=== PATIENT | female | born 1965 | race Caucasian/White ===

== ENCOUNTER 2021-04-03 10:32 | Outpatient (CLI) | payer BC ==
[2021-04-03 15:20] LABS: THYROID STIMULATING HORMONE 0.96 uIU/mL (0.34-5.60)
[2021-04-03 15:21] LABS: FREE T3 3.33 pg/mL (2.5-3.9)
[2021-04-03 15:22] LABS: FREE T4 (FREE THYROXINE) 1.61 ng/dL (0.58-1.64)
== END 2021-04-03 10:33 | disposition home or self-care (01) ==
LOC: LAB.S 10:32
PROVIDERS: ATTEND Physician Assistant
DX: R53.81 Other malaise (principal); R79.82 Elevated C-reactive protein (CRP); R89.0 Abnormal level of enzymes in specimens from other organs, systems and tissues; E89.0 Postprocedural hypothyroidism
CPT/HCPCS: 36415; 84439; 84443; 84481; 86141

== ENCOUNTER 2022-02-19 08:00 | Outpatient (CLI) | payer BC ==
--- NOTE | 2022-02-19 11:47 | XRAY Report ---
PROCEDURE: Ankle 3 View RT INDICATIONS: RIGHT ANKLE FRACTURE TECHNIQUE: 3 views of the ankle were acquired. COMPARISON: None FINDINGS: Bones: Minimally displaced oblique fracture of the distal fibular metaphysis. Mortise alignment is ma intained. No osteochondral lesion in the talar dome. A small plantar calcaneal enthesophyte is presen t. No suspicious bony lesions. Soft tissues: Mild soft tissue edema is seen surrounding the ankle. IMPRESSION: Minimally displaced fracture of the distal fibular metaphysis. Reviewed by: Jose G Montalvo MD on 02/19/2022 11:46 AM PDT Approved by: Jose G Montalvo MD on 02/19/2022 11:46 AM PDT Station ID: [id number]
== END 2022-02-19 23:59 | disposition home or self-care (01) ==
LOC: DI.S 08:00
DX: S82.431A Displaced oblique fracture of shaft of right fibula, initial encounter for closed fracture (principal)

== ENCOUNTER 2022-03-03 08:00 | Outpatient (CLI) | payer BC ==
--- NOTE | 2022-03-03 15:46 | XRAY Report ---
PROCEDURE: Ankle 3 View RT INDICATIONS: Right ankle fracture TECHNIQUE: 3 views of the ankle were acquired. COMPARISON: 02/19/2022 FINDINGS: Unchanged alignment of distal fibular metaphyseal fracture again extending into the tibiofi bular syndesmosis and the ankle mortise. Mild widening of the lateral ankle mortise is unchanged. Sma ll ankle joint effusion is similar. IMPRESSION: Unchanged distal fibular metaphyseal fracture extending into the ankle mortise with unch anged mild widening of the lateral mortise. Reviewed by: Vj Ahn MD on 03/03/2022 3:45 PM PDT Approved by: Vj Ahn MD on 03/03/2022 3:45 PM PDT Station ID: [id number]
== END 2022-03-03 23:59 | disposition home or self-care (01) ==
LOC: DI.S 08:00
DX: S82.831D Other fracture of upper and lower end of right fibula, subsequent encounter for closed fracture with routine healing (principal)

== ENCOUNTER 2022-03-31 07:49 | Outpatient (CLI) | payer BC ==
[2022-03-31 15:18] LABS: ALBUMIN 4.1 g/dL (3.2-5.5); ALBUMIN/GLOBULIN RATIO 1.5 (1.0-2.2); ALKALINE PHOSPHATASE 79 IU/L (42-121); ALT ALANINE AMINOTRANSFERASE 35 IU/L (10-60); AST ASPARTATE AMINOTRANSFERASE 25 IU/L (10-42); BILIRUBIN,TOTAL 0.5 mg/dL (0.2-1.0); BUN - BLOOD UREA NITROGEN 19 mg/dL (6-20); CALCIUM 9.5 mg/dL (8.5-10.3); CARBON DIOXIDE - CO2 28 mmol/L (21-32); CHLORIDE 103 mmol/L (101-111); CHOL/HDL RATIO 3.3 (<4.4); CHOLESTEROL 209 mg/dL; CREATININE 0.8 mg/dL (0.4-1.0); GAMMA GLUTAMYL TRANSPEPTIDASE 33 IU/L (8-38); GFR - MDRD 75 (>89); GLUCOSE 97 mg/dL (70-100); HDL CHOLESTEROL 63 mg/dL; LDL CHOLESTEROL,CALCULATED 110 mg/dL; LDL/HDL RATIO 1.7 (<4.4); POTASSIUM 4.4 mmol/L (3.5-5.0); SODIUM 137 mmol/L (135-145); TOTAL PROTEIN 6.9 g/dL (6.7-8.2); TRIGLYCERIDES 180 mg/dL; VLDL CHOLESTEROL 36 mg/dL
[2022-03-31 15:29] LABS: THYROID STIMULATING HORMONE 1.11 uIU/mL (0.34-5.60)
[2022-03-31 15:31] LABS: FREE T3 3.39 pg/mL (2.5-3.9)
[2022-03-31 15:33] LABS: FREE T4 (FREE THYROXINE) 1.22 ng/dL (0.58-1.64)
== END 2022-03-31 07:50 | disposition home or self-care (01) ==
LOC: LAB.S 07:49
PROVIDERS: ATTEND Physician Assistant
DX: R53.81 Other malaise (principal)
CPT/HCPCS: 36415; 80053; 80061; 82977; 83721; 84439; 84443; 84481

== ENCOUNTER 2022-12-23 13:07 | Outpatient (CLI) | payer BC ==
--- NOTE | 2022-12-31 10:48 | Mammography Report ---
BILATERAL DIGITAL SCREENING MAMMOGRAM 3D/2D: 12/23/2022 CLINICAL: Routine screening. No prior exams were available for comparison. There are scattered areas of fibroglandular density in both breasts (category b / 25%-50% glandular t issue). No significant masses, calcifications, or other findings are seen in either breast. IMPRESSION: NEGATIVE There is no mammographic evidence of malignancy. A 1 year screening mammogram is recommended. Based on the Tyrer Cuzick model (a risk assessment model) the patients lifetime risk is 9.3% and her 10 year risk is 2.9%. According to the ACR, ACS, and NCCN guidelines, an annual breast MRI exam jayce g with mammogram is recommended if the patients lifetime risk is 20% or greater. This exam was interpreted at Station ID: [id number]. NOTE: For mammograms, a report in lay terms will be sent to the patient. Approximately 15% of breast malignancies will not be visualized mammographically. In the management of a palpable breast mass, a negative mammogram must not discourage biopsy of a clinically suspicious lesion. Electronically Signed By: Oliver Joshua M.D. [facility] [place]12/30/2022 16:21:20 letter sent: No_Letter ACR BI-RADS Category 1: Negative 3341F PARENCHYMAL PATTERN: (A) - The breast(s) demonstrate(s) scattered fibroglandular densities. BI-RADS CATEGORY: (1) - 1 Mammogram 20231224 1 year screening LATERALITY: (B)
== END 2022-12-23 13:08 | disposition home or self-care (01) ==
LOC: DI.S 13:07
DX: Z12.31 Encounter for screening mammogram for malignant neoplasm of breast (principal)

== ENCOUNTER 2023-07-27 08:00 | Outpatient (CLI) | payer BC ==
[2023-07-27 14:42] LABS: BASOPHILS # (AUTO) 0.1 10^3/uL (0.0-0.1); BASOPHILS % (AUTO) 1.3 %; EOSINOPHILS # (AUTO) 0.1 10^3/uL (0.0-0.7); EOSINOPHILS % (AUTO) 1.9 %; HCT - HEMATOCRIT 42.7 % (37.0-47.0); HGB - HEMOGLOBIN 14.4 g/dL (12.0-16.0); LYMPHOCYTES # (AUTO) 2.6 10^3/uL (1.5-3.5); LYMPHOCYTES % (AUTO) 49.4 %; MEAN CORPUSCULAR HEMOGLOBIN 31.9 pg (27.0-31.0); MEAN CORPUSCULAR HGB CONC 33.7 g/dL (32.0-36.0); MEAN CORPUSCULAR VOLUME 94.5 fL (81.0-99.0); MEAN PLATELET VOLUME 9.6 fL (7.9-10.8); MONOCYTES # (AUTO) 0.3 10^3/uL (0.0-1.0); NEUTROPHILS # (AUTO) 2.1 10^3/uL (1.5-6.6); PLT - PLATELET COUNT 278 10^3/uL (130-450); RED BLOOD COUNT 4.52 10^6/uL (4.20-5.40); RED CELL DISTRIBUTION WIDTH 12.2 % (12.0-15.0); WHITE BLOOD COUNT 5.2 x10^3/uL (4.8-10.8)
[2023-07-27 16:15] LABS: ESTIMATED AVERAGE GLUCOSE 88 mg/dL (70-100); HEMOGLOBIN A1c% 4.7 % (4.27-6.07)
[2023-07-27 16:16] LABS: % IRON SATURATION 21 % (20-50); ALBUMIN 4.5 g/dL (3.2-5.5); ALKALINE PHOSPHATASE 73 IU/L (42-121); ALT ALANINE AMINOTRANSFERASE 59 IU/L (10-60); AST ASPARTATE AMINOTRANSFERASE 37 IU/L (10-42); BILIRUBIN,TOTAL 0.4 mg/dL (0.2-1.0); BUN - BLOOD UREA NITROGEN 17 mg/dL (6-20); CALCIUM 9.4 mg/dL (8.5-10.3); CARBON DIOXIDE - CO2 27 mmol/L (21-32); CHLORIDE 102 mmol/L (101-111); CHOLESTEROL 204 mg/dL; CREATININE 0.8 mg/dL (0.6-1.3); CRP HIGH SENSITIVITY 2.77 mg/L; GFR - MDRD 74 (>89); GLUCOSE 90 mg/dL (74-104); HDL CHOLESTEROL 69 mg/dL; IRON 74 ug/dL (50-212); LDL CHOLESTEROL,CALCULATED 116 mg/dL; LDL/HDL RATIO 1.7 (<4.4); POTASSIUM 4.2 mmol/L (3.5-4.5); SODIUM 136 mmol/L (135-145); TOTAL IRON BINDING CAPACITY 356 ug/dL (250-450); TOTAL PROTEIN 6.8 g/dL (6.4-8.9); TRANSFERRIN 254 mg/dL (203-362); TRIGLYCERIDES 94 mg/dL (48-352); VLDL CHOLESTEROL 19 mg/dL
[2023-07-27 16:26] LABS: FERRITIN 65.2 ng/mL (11.0-306.8)
[2023-07-28 07:10] LABS: ESTRADIOL 34.4 pg/mL (.); PROGESTERONE 1.5 ng/mL (.); VITAMIN D 25-HYDROXY 81.9 ng/mL (30.0-100.0)
[2023-07-29 14:08] LABS: FREE TESTOSTERONE(DIRECT) 5.7 pg/mL (0.0-4.2)
== END 2023-07-27 08:01 | disposition home or self-care (01) ==
LOC: LAB.S 08:00
PROVIDERS: ATTEND Physician Assistant
DX: R53.81 Other malaise (principal); N95.1 Menopausal and female climacteric states
CPT/HCPCS: 36415; 80053; 80061; 81599; 82306; 82533; 82627; 82670; 82728; 83036; 83540; 83721; 84140; 84144; 84402; 84403; 84439; 84443; 84466; 84481; 85025; 86141

== ENCOUNTER 2024-04-10 09:08 | Outpatient (CLI) | payer BC ==
--- NOTE | 2024-04-10 16:56 | Ultrasound Report ---
PROCEDURE: Abdomen Limited INDICATIONS: RUQ PAIN TECHNIQUE: Real-time focused scanning was performed of the abdomen, with image documentation. COMPARISONS: None. FINDINGS: Liver: Liver is normal in size and homogeneous in echotexture. Gallbladder: Multiple mobile stones seen in the gallbladder neck. No , sludge, wall thickening or per icholecystic edema. Biliary ducts: Intrahepatic bile ducts are non-dilated. Extrahepatic bile duct caliber measures 4.3 mm. Normal is 6-7 mm or less in diameter, or 10 mm or less post-cholecystectomy. Pancreas: Visualized portions of the pancreas are sonographically normal. Right kidney: Normal in size and echotexture. Right kidney measures 9.7 cm long. No hydronephrosis o r nephrolithiasis. No solid masses. No complex renal cystic lesions which require follow-up. IVC: Intrahepatic inferior vena cava is patent. Miscellaneous: No free abdominal fluid. IMPRESSION: Cholelithiasis with multiple mobile gallstones throughout the gallbladder neck. Reviewed by: Shay Merlos MD on 04/10/2024 4:54 PM PDT Approved by: Shay Merlos MD on 04/10/2024 4:54 PM PDT Station ID: [id number]
== END 2024-04-10 09:09 | disposition home or self-care (01) ==
LOC: DI 09:08
PROVIDERS: ATTEND Physician Assistant
DX: R10.11 Right upper quadrant pain (principal); K80.20 Calculus of gallbladder without cholecystitis without obstruction